=== PATIENT | female | born 1965 | race Caucasian/White ===

== ENCOUNTER 2018-07-31 15:08 | Emergency (ER) | payer BC ==
--- NOTE | 2018-07-31 16:16 | RAD ---
PA AND LATERAL CHEST: 07/31/18 HISTORY: Cough. Heart size and mediastinum are within normal limits. The lungs are clear of any focal infiltrative pr ocess. Arthritic changes of the spine. IMPRESSION: No active intrathoracic disease. POS: [facility]
== END 2018-07-31 16:58 | disposition home or self-care (01) ==
LOC: MADERS 15:08
DX: J20.9 Acute bronchitis, unspecified (principal); E78.5 Hyperlipidemia, unspecified; J45.909 Unspecified asthma, uncomplicated; Z79.899 Other long term (current) drug therapy
CPT/HCPCS: 71046; 87804